=== PATIENT | male | born 1995 | race Caucasian/White ===

== ENCOUNTER 2016-08-30 09:00 | Emergency (ER) | payer OTHER ==
[2016-08-30 09:12] VITALS: RESP 16; TEMP 98.8; O2SAT 98
[2016-08-30] MEDS ORDERED: LORazepam 1 MG TAB PO ONE (09:19)
--- NOTE | 2016-08-30 09:24 | EDPHY ---
H & P Stated Complaint: PANIC ATTACK FOR 2 WEEKS Time Seen by Provider: 08/30/16 09:10 HPI/ROS: Chief Complaint: Anxiety HPI: 21-year-old male presenting with worsening anxiety for the last 2 weeks. He has been having symptoms of anxiety for several years. He used to see a psych breanna just in [place] but has not done so for a while. Is drinking alcohol frequently usually to treat his symptoms. He has noticed that he is feeling worse usually the morning after he has been drinking. States he can drink a 6 pack at that time and then wake up tremulous and anxious. Woke up this morning after drinking quite heavily last night feeling the same. Denies being suicidal. Does not feel particularly depressed. Has not followed up with a primary care physician. No fevers or chills. No cough. No weight loss or weight gain. 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 ROS: 10 point Review of Systems is negative except as noted in the HPI. PMH: None Medications: None Allergies: No known drug allergies Social History: Positive for smoking, regular alcohol, daily marijuana Family History: non-contributory Physical Exam: Gen: Awake, Alert, tremulous and anxious appearing HEENT: Nose: no rhinorrhea Eyes: PERRLA, EOMI Mouth: Moist mucosa Neck: Supple, no JVD Chest: nontender, lungs clear to auscultation Heart: S1, S2 normal, no murmur Abd: Soft, non-tender, no guarding Back: no CVA tenderness, no midline tenderness Ext: no edema, non-tender Skin: no rash Neuro: CN II-XII intact, Sensation grossly intact, Strength 5/5 in bilateral upper and lower extremities - Personal History Current Tetanus Diphtheria and Acellular Pertussis (TDAP): Unsure - Medical/Surgical History Other PMH: ANXIETY Constitutional: Initial Vital Signs Temperature (C) 37.1 C 08/30/16 09:10 Heart Rate 102 H 08/30/16 09:10 Respiratory Rate 16 08/30/16 09:10 Blood Pressure 167/101 H 08/30/16 09:10 O2 Sat (%) 98 08/30/16 09:10 O2 Delivery Mode Room Air Medical Decision Making ED Course/Re-evaluation: 21-year-old male presenting with symptoms of anxiety combined with acute alcohol withdrawal. Will give benzodiazepines and referral to [facility]. The patient is not suicidal and he is adrienne for safety. He is not gravely disabled. There is no criteria to place him on a mental health hold at this time. He has insight into his problems at this time. He is appropriate for outpatient management. Departure - Departure Disposition: Home, Routine, Self-Care Clinical Impression: Anxiety, Alcohol withdrawal Condition: Good Instructions: Anxiety (ED), Alcohol Withdrawal (ED), Lorazepam (By mouth) Additional Instructions: Try to decrease your alcohol consumption as I believe this is contributing to your symptoms. Follow up with [facility] in 2-3 days. Follow up with primary care physician in 3-4 days for reassessment. Return to the emergency department for increasing anxiety, thoughts of suicide, uncontrolled shaking, nausea, vomiting, or any other concerns. Referrals: Nadine Pacheco MD [Medical Doctor] - As per Instructions [facility],. [Clinic] - As per Instructions
[2016-08-30] MEDS ORDERED: LORAZEPAM 1 MG PREPACK#4 BTL TAKEHOME ONE (10:01)
[2016-08-30 10:19] VITALS: BP 121/80; PULSE 70
== END 2016-08-30 10:19 | disposition home or self-care (01) ==
LOC: CED 09:00
DX: F10.280 Alcohol dependence with alcohol-induced anxiety disorder (principal); F17.200 Nicotine dependence, unspecified, uncomplicated